=== PATIENT | female | born 1985 | race Caucasian/White ===

== ENCOUNTER → 2022-08-07 09:13 | Outpatient (CLI) | payer OTHER, SELFPAY ==
--- NOTE | ~2022-08-07 | MMUS_ITS ---
EXAMINATION: MM diagnostic sola BI w tracy, US breast BI complete HISTORY: Breast pain TECHNIQUE: Additional 3-D tomosynthesis images of the breasts were performed and synthetic 2-D images were generated. CAD analysis was submitted and interpreted. High resolution complete bilateral breas t ultrasound was performed. COMPARISON: None BREAST PARENCHYMAL COMPOSITION: The breasts are extremely dense, which lowers the sensitivity of mamm ography FINDINGS: MAMMOGRAPHIC FINDINGS: There are bilateral breast masses scattered throughout both breasts which are secured by dense fibrog landular tissue. ULTRASOUND: Complete bilateral US of all 4 quadrants of the breasts and retroareolar region was reviewed. There a re multiple bilateral simple and complicated cysts of both breasts corresponding to areas of mammogra phic abnormality. Largest cyst in the right breast measures 1.9 cm maximum dimension. Largest in the left breast measures 2.2 cm greatest dimension at 2:00, 6 cm from the nipple. In the right breast at 9:00, 7 cm from the nipple there is an oval hypoechoic mass measuring 6 mm, most likely complicated c ysts. In the left breast at 1:00, 3 cm from the nipple there is an oval hypoechoic mass measuring 1 c m with parallel orientation, significant posterior acoustic enhancement and no internal and vasculari ty, likely a complicated cyst. At 4:00, 8 cm from the nipple in the left breast there is a slightly i rregular shaped mass measuring 7 mm, likely complicated cysts. At 6:00, 5 cm from the nipple, there i s a slightly irregular shaped hypoechoic mass measuring 8 mm without internal vascularity or signific ant posterior features. Slightly irregular margins.. IMPRESSION: 1. Probable benign bilateral breast masses demonstrated on ultrasound as described above. 2. Recommend 6 month follow-up limited bilateral breast ultrasound. BI-RADS category 3, probably benign findings. Reviewed, dictated and finalized at location A. LINE OPERATOR IMPRESSION: 1. Probable benign bilateral breast masses demonstrated on ultrasound as descri bed above. 2. Recommend 6 month follow-up limited bilateral breast ultrasound. BI-RADS category 3, probably benign findings.
== END ==
PROVIDERS: PCP Nurse Practitioner; Visit Provider Nurse Practitioner
DX: N64.4 Mastodynia (principal)
CPT/HCPCS: 76641; 77062; 77066; G0279